=== PATIENT | female | born 1945 | race Caucasian/White ===

== ENCOUNTER 2025-10-10 11:24 | Emergency (ER) | payer MEDICARE, MEDICAID ==
[~2025-10-10] VITALS: Ht 157.5 cm; Wt 68.0 kg
[2025-10-10 11:31] VITALS: TEMP 36.7
[2025-10-10 11:37] VITALS: BP 153/104
[2025-10-10 12:11] LABS: BASOPHILS % 0.7 % (0.0-2.0); EOSINOPHILS % 2.7 % (0.0-5.0); HEMATOCRIT. 34.3 % (36.0-48.0); HEMOGLOBIN. 11.7 g/dL (12.0-16.0); LYMPHOCYTES % 12.5 % (20.0-50.0); MEAN PLATELET VOLUME 8.5 fl (7.4-10.4); MONOCYTES % 9.3 % (2.0-8.0); NEUTROPHILS % 74.8 % (40.0-76.0); PLATELET 245 x1000/uL (130-400); RED BLOOD CELL COUNT 3.69 mill/uL (4.2-5.4); RED CELL DISTRIBUTION WIDTH 12.9 % (11.6-14.6)
[2025-10-10 12:26] LABS: CREATININE 0.8 mg/dL (0.6-1.0); UREA NITROGEN BLOOD 11 mg/dL (9-23)
[2025-10-10] MEDS: PREDNISONE 20MG TABLET PO ONE (12:33)
[2025-10-10 12:49] VITALS: PULSE 73; RESP 18; O2SAT 98
[2025-10-10] MEDS: IPRATROPIUM BROMIDE (0.02%) 0.5MG/2.5ML NEB HHN SCH (12:49)
[2025-10-10] MEDS: ALBUTEROL (0.083%) 2.5MG/3ML NEB HHN SCH (12:49)
[2025-10-10 13:06] LABS: ASPARTATE AMINOTRANSFERASE 20 IU/L (<34); BILIRUBIN DIRECT < 0.1 mg/dL (<=3.0); BILIRUBIN TOTAL 0.4 mg/dL (0.1-1.0); PROTEIN TOTAL 7.2 g/dL (6.0-8.3)
[2025-10-10] MEDS ORDERED: ALBUTEROL (0.083%) 2.5MG/3ML NEB HHN SCH (13:15)
[2025-10-10] MEDS ORDERED: IPRATROPIUM BROMIDE (0.02%) 0.5MG/2.5ML NEB HHN SCH (13:15)
[2025-10-10 13:30] LABS: TROPONIN I HIGH SENSITIVITY 4 ng/L (3.0-34)
[2025-10-10] MEDS ORDERED: IOHEXOL-350 100 ML BOTTLE ONE (15:07)
[2025-10-10 15:52] LABS: TROPONIN I HIGH SENSITIVITY 7 ng/L (3.0-34)
[2025-10-10] MEDS ORDERED: ALBU18HF2 IH (15:54)
[2025-10-10] MEDS ORDERED: P50 MT (15:55)
[2025-10-10] MEDS ORDERED: AMOX1TAB16 MT (15:55)
== END 2025-10-10 16:27 | disposition home or self-care (01) ==
LOC: ER 11:24
DX: J11.00 Influenza due to unidentified influenza virus with unspecified type of pneumonia (principal); J45.901 Unspecified asthma with (acute) exacerbation; I10 Essential (primary) hypertension; E11.9 Type 2 diabetes mellitus without complications
CPT/HCPCS: 99285; 71275; 71045; 80076; 80048; 83880; 85025; 85379; 84484; 93005; 94644; 36415; Q9967; J7512; 94070; 94640; 94664; 98960